=== PATIENT | female | born 1955 | race Caucasian/White ===

== ENCOUNTER 2018-08-29 16:21 | Inpatient (IN) | payer OTHER ==
[~2018-08-29] VITALS: Ht 172.7 cm; Wt 63.5 kg
--- NOTE | 2018-08-29 16:33 | ER Report ---
History and Physical Time Seen By MD: 16:33 Hx. of Stated Complaint: pt had a low speed fall skiing. felt rt hip pop out. went to urgent care, they sent pt to er HPI/ROS CHIEF COMPLAINT: r hip pain HISTORY OF PRESENT ILLNESS: PT was skiing and went to avoid an accident that occurred in front of her and twisted her r hip. Pt went down on her hip. Unable to stand or put pressure back on her leg. pilot [employer] brought her down the hill. PT went to urgent care but told to come to ED. pt took three motrin and eos not want any pain medication currently. No knee pain. no numbnesss. Pain is right hip and medially. REVIEW OF SYSTEMS: Constitutional: No fever, no chills. Eyes: No discharge. ENT: No sore throat. Cardiovascular: No chest pain, no palpitations. Respiratory: No cough, no shortness of breath. Gastrointestinal: No abdominal pain, no vomiting. Genitourinary: No hematuria. Musculoskeletal: No back pain. + r hip pain Skin: No rashes. Neurological: No headache. Allergies: Coded Allergies: No Known Drug Allergies (Unverified , 08/29/18) Home Meds No Active Prescriptions or Reported Meds Past Medical/Surgical History Pmhx: denied Pshx: hyster, tania Reviewed Nurses Notes: Yes Hx Smoking: No Hx Alcohol Use: No Constitutional Vital Sign - Last 24 Hours 08/29/18 16:27 Temp 95.0 Pulse 83 Resp 20 Pulse Ox 97 O2 Delivery Room Air Physical Exam General Appearance: The patient is alert, has no immediate need for airway protection and no signs of toxicity. Eyes: Pupils equal and round no pallor or injection, EOMI ENT: no pharyngeal erythema or exudates, Mucous membranes are moist Respiratory: There are no retractions, lungs are clear to auscultation. Cardiovascular: Regular rate and rhythm. pulses are equal and symmetrical Gastrointestinal: Abdomen is soft and non tender, no masses, bowel sounds normal, no guarding, no rigidity or rebound Neurological: Cranial nerves II-XII grossly intact, no sensory or motor loss Skin: Warm and dry, no rashes. Musculoskeletal: Neck is supple non tender, no vertebral tenderness Upper Extremities are nontender, nonswollen and have full range of motion.Lower extremities: Pt us unable to elevate r lower extremity secondary to pain. NO laxitiy with chhaya, valgus or varus b/l knees; no effusion to knees. PT has point tenderness to r anterior hip and medial ligament line on right DIFFERENTIAL DIAGNOSIS: After history and physical exam differential diagnosis was considered for subluxation of r hip, hip dislocation, hip fracture Medical Decision Making Data Points Result Diagram: 08/29/18 1704 08/29/18 1704 Laboratory Hematology Test 08/29/18 17:04 Red Blood Count 4.82 M/uL (4.17-5.56) Mean Corpuscular Volume 84.6 fL (80.0-96.0) Mean Corpuscular Hemoglobin 28.8 pg (26.0-33.0) Mean Corpuscular Hemoglobin Concent 34.0 g/dL (32.0-36.0) Red Cell Distribution Width 13.2 % (11.5-14.5) Mean Platelet Volume 8.7 fL (7.2-11.1) Neutrophils (%) (Auto) 67.5 % (39.4-72.5) Lymphocytes (%) (Auto) 24.3 % (17.6-49.6) Monocytes (%) (Auto) 4.5 % (4.1-12.4) Eosinophils (%) (Auto) 3.2 % (0.4-6.7) Basophils (%) (Auto) 0.5 % (0.3-1.4) Nucleated RBC Relative Count (auto) 0.0 /100WBC Neutrophils # (Auto) 5.7 K/uL (2.0-7.4) Lymphocytes # (Auto) 2.0 K/uL (1.3-3.6) Monocytes # (Auto) 0.4 K/uL (0.3-1.0) Eosinophils # (Auto) 0.3 K/uL (0.0-0.5) Basophils # (Auto) 0.0 K/uL (0.0-0.1) Nucleated RBC Absolute Count (auto) 0.00 K/uL Prothrombin Time 13.2 seconds (12.0-14.4) Prothromb Time International Ratio 1.00 Activated Partial Thromboplast Time 29 seconds (23-35) Sodium Level 134 mmol/L (137-145) Potassium Level 3.5 mmol/L (3.5-5.0) Chloride Level 105 mmol/L (98-107) Carbon Dioxide Level 23 mmol/L (22-31) Blood Urea Nitrogen 13 mg/dl (7-18) Creatinine 0.80 mg/dl (0.52-1.04) Glomerular Filtration Rate Calc > 60.0 Random Glucose 100 mg/dl (75-110) Calcium Level 9.6 mg/dl (8.4-10.2) Total Bilirubin 2.2 mg/dl (0.2-1.3) Aspartate Amino Transf (AST/SGOT) 36 U/L (0-35) Alanine Aminotransferase (ALT/SGPT) 37 U/L (0-56) Alkaline Phosphatase 81 U/L (0-126) Total Protein 7.1 g/dl (6.3-8.2) Albumin 4.5 g/dl (3.5-5.0) Chemistry Test 08/29/18 17:04 White Blood Count 8.4 k/uL (4.5-11.0) Red Blood Count 4.82 M/uL (4.17-5.56) Hemoglobin 13.9 g/dL (12.0-16.0) Hematocrit 40.8 % (34.0-47.0) Mean Corpuscular Volume 84.6 fL (80.0-96.0) Mean Corpuscular Hemoglobin 28.8 pg (26.0-33.0) Mean Corpuscular Hemoglobin Concent 34.0 g/dL (32.0-36.0) Red Cell Distribution Width 13.2 % (11.5-14.5) Platelet Count 232 K/uL (150-450) Mean Platelet Volume 8.7 fL (7.2-11.1) Neutrophils (%) (Auto) 67.5 % (39.4-72.5) Lymphocytes (%) (Auto) 24.3 % (17.6-49.6) Monocytes (%) (Auto) 4.5 % (4.1-12.4) Eosinophils (%) (Auto) 3.2 % (0.4-6.7) Basophils (%) (Auto) 0.5 % (0.3-1.4) Nucleated RBC Relative Count (auto) 0.0 /100WBC Neutrophils # (Auto) 5.7 K/uL (2.0-7.4) Lymphocytes # (Auto) 2.0 K/uL (1.3-3.6) Monocytes # (Auto) 0.4 K/uL (0.3-1.0) Eosinophils # (Auto) 0.3 K/uL (0.0-0.5) Basophils # (Auto) 0.0 K/uL (0.0-0.1) Nucleated RBC Absolute Count (auto) 0.00 K/uL Prothrombin Time 13.2 seconds (12.0-14.4) Prothromb Time International Ratio 1.00 Activated Partial Thromboplast Time 29 seconds (23-35) Glomerular Filtration Rate Calc > 60.0 Calcium Level 9.6 mg/dl (8.4-10.2) Total Bilirubin 2.2 mg/dl (0.2-1.3) Aspartate Amino Transf (AST/SGOT) 36 U/L (0-35) Alanine Aminotransferase (ALT/SGPT) 37 U/L (0-56) Alkaline Phosphatase 81 U/L (0-126) Total Protein 7.1 g/dl (6.3-8.2) Albumin 4.5 g/dl (3.5-5.0) Coagulation Test 08/29/18 17:04 Prothrombin Time 13.2 seconds Prothromb Time International Ratio 1.00 Activated Partial Thromboplast Time 29 seconds EKG/Imaging EKG Interpretation nsr @ 80 wiht sinus arrhythmia otherwise normal ekg Imaging subtly displaced subvapital femoral neck fracture. ED Course/Re-evaluation Clinical Indication for ER IV: IV Access ED Course PT xray shows femoral neck fracture. will order labs. 08/29/2018 5:29:[address] Mcintosh, orthopedics, reviewed the case. States that he does not perform hip surgery but will call his partner and call me back. 08/29/2018 5:59:[address] Mcintosh, he just got in touch with Dr. Pascal who will due surgery tomorrow. he is not sure if basil wants to be priomary or have hospitalist follow. will call me back. Just spoke with Dr. Mcintosh who will have dr. Pascal accept as primary and consult Hospitalist. Still aware. Decision to Disposition Date: Aug 29, 2018 Decision to Disposition Time: 18:00 Depart Departure Latest Vital Signs Vital Signs Date Time Temp Pulse Resp B/P (MAP) Pulse Ox O2 Delivery O2 Flow Rate FiO2 08/29/18 16:27 95.0 83 20 97 Room Air Impression: Primary Impression: Hip fracture, right Condition: Condition Unchanged Disposition: Admitted from ER New Scripts No Active Prescriptions or Reported Meds Problem Qualifiers Primary Impression: Hip fracture, right Encounter type: initial encounter Fracture type: closed Qualified Codes: S72.001A - Fracture of unspecified part of neck of right femur, initial encounter for closed fracture ULICES HERNANDEZ DO Aug 29, 2018 16:33
[2018-08-29] MEDS ORDERED: fentaNYL CITR 100 MCG/2 ML AMP IVP ONE ×2 (16:50→18:00)
--- NOTE | 2018-08-29 17:01 | RADIOLOGY IMAGING REPORT ---
FACILITY: [facility] [place] PATIENT NAME: Sherrill Johnson : 1955 MR: [id number] V: [id number] EXAM DATE: ORDERING PHYSICIAN: ULICES HERNANDEZ TECHNOLOGIST: Location: [facility] [place] Patient: Sherrill Johnson : 1955 Visit/Account:[id number] Date of Sevice: 08/29/2018 HIP RIGHT Indication: Fall skiing Comparison: None available Findings: There is a subtly displaced subcapital left femoral neck fracture. Mild overriding. The femoral nec k and shaft is very subtly medially displaced. IMPRESSION: 1. Subtly displaced subcapital right femoral neck fracture. Report Dictated By: Oliver Roberto MD at 08/29/2018 4:55 PM Report E-Signed By: Oliver Roberto MD at 08/29/2018 4:56 PM WSN:[id number]
--- NOTE | 2018-08-29 17:01 | EKG ---
FACILITY: [facility] PATIENT NAME: SOFYA GATES : [id number] MR: [id number] V: [id number] EXAM DATE: ORDERING PHYSICIAN: ULICES HERNANDEZ TECHNOLOGIST: Test Reason : Pre-op Blood Pressure : / mmHG Vent. Rate : 079 BPM Atrial Rate : 079 BPM P-R Int : 144 ms QRS Dur : 098 ms QT Int : 410 ms P-R-T Axes : 067 015 040 degrees QTc Int : 470 ms Normal sinus rhythm with sinus arrhythmia Normal ECG No previous ECGs available Confirmed by Stevie Smith ([id number]) on 08/30/2018 12:08:10 AM Referred By: Confirmed By:Stevie Johnson
[2018-08-29 17:18] LABS: PLATELET COUNT, AUTOMATED 232 K/uL (150-450)
[2018-08-29] MEDS ORDERED: ONDANSETRON 4 MG/2 ML VIAL IVP ONE (18:00)
--- NOTE | 2018-08-29 19:49 | RADIOLOGY IMAGING REPORT ---
FACILITY: [facility] - [place] PATIENT NAME: Sherrill Johnson : 1955 MR: [id number] V: [id number] EXAM DATE: ORDERING PHYSICIAN: ULICES HERNANDEZ TECHNOLOGIST: Location: [facility] Patient: Sherrill Johnson : 1955 Visit/Account:[id number] Date of Sevice: 08/29/2018 CHEST SINGLE AP Indication: Pre-op evaluation.. Comparison: None available Findings: Cardiomediastinal silhouette and pulmonary vessels within normal limits. There is no focal infiltrate or lobar consolidation. No pneumothorax or pleural effusion. No nodule. Chronic interstitial changes. Upper abdomen is unremarkable. Surgical clips in the righ t upper quadrant. No acute bony abnormality. IMPRESSION: 1. No acute cardiopulmonary process. Report Dictated By: Shad Morocho at 08/29/2018 7:45 PM Report E-Signed By: Shad Morocho at 08/29/2018 7:45 PM WSN:[id number]
[2018-08-29 19:50] VITALS: BP 138/69
[2018-08-29] MEDS: DOCUSATE SODIUM 100 MG CAP PO SCH (21:00)
--- NOTE | 2018-08-29 22:36 | HISTORY AND PHYSICAL ---
DATE OF ADMISSION: August 29, 2018 ADMISSION DIAGNOSIS Right femoral neck fracture. HISTORY Ms. Johnson is a 62-year-old female who, unfortunately, injured her right hip while skiing on 08/29/18. She was skiing, and there was a pile up in front of her. She went to stop and fell down on her hip. She was obviously unable to ambulate and had pain. She was brought to the Emergency Room, evaluated by the emergency room physicians, found to have an impacted femoral neck fracture, and Orthopedics was consulted. She denies any other complaints. REVIEW OF SYSTEMS Positive only for right hip pain. PHYSICAL EXAMINATION GENERAL: She is in no acute distress. HEENT: Within normal limits. CHEST: Clear to auscultation. HEART: Regular rate and rhythm. ABDOMEN: Soft, nontender, nondistended. MUSCULOSKELETAL: Bilateral upper extremities demonstrate full range of motion, nontender to palpation. Spine nontender to palpation. Pelvis demonstrates right hip pain. She has pain with any log roll or range of motion of the hip. Knee demonstrates no effusion. Plantar flexion, dorsiflexion, FHL, EHL are intact. Sensation at site of perineural nerves is intact. The left hip and leg demonstrate full range of motion, nontender to palpation. LABORATORY TESTS Her white count is 8.4, hematocrit 40.8, platelets 232. Sodium 134, potassium 3.4, BUN 13, creatinine 0.8, glucose 100. PAST MEDICAL HISTORY Denies. PAST SURGICAL HISTORY 1. Left shoulder surgery. 2. Cholecystectomy. 3. Hysterectomy. ALLERGIES No known drug allergies. MEDICATIONS None. SOCIAL HISTORY Denies tobacco. Admits to alcohol use. Currently is retired and lives in [place]. X-RAYS Two views of the hip and pelvis demonstrate a valgus impacted femoral neck fracture. There were minimal signs of femoral and acetabular degenerative joint disease. ASSESSMENT A 62-year-old female with valgus impacted right femoral neck fracture. PLAN At this point, I have consulted Dr. Driscoll as I no longer perform this surgery, and he is aware of Ms. Johnson. We will [facility] with consultation from the hospitalist to evaluate her for optimization. Will keep her n.p.o. after midnight and plan on percutaneous screw fixation of the right impacted femoral neck fracture with Dr. Driscoll tomorrow. [facility]
--- NOTE | 2018-08-29 23:06 | Hospitalist Consultation ---
History of Present Illness Requesting Physician Dr Mcintosh Reason for Consult medical management Chief Complaint R hip Fx History of Present Illness 62F presented with R hip pain. PMHx significant for mild constipation. While skiing she had to stop to avoid skiers trying to rescue another who had left the edge of the run. She heard a pop and fell. She was unable to bear weight and had pain. Brought to [facility] ER where she was found to have R hip Fx. Plan for OR tomorrow to repair. History Other Past Medical Hx as noted in HPI. Home Meds No Active Prescriptions or Reported Meds Allergies: Coded Allergies: No Known Drug Allergies (Unverified , 08/29/18) Hx Smoking: No Hx Alcohol Use: No Review of Systems All Systems Reviewed/Normal: Yes, Except as Noted Musculoskeletal: Pain Exam Vital Signs Vital Signs Date Time Temp Pulse Resp B/P (MAP) Pulse Ox O2 Delivery O2 Flow Rate FiO2 08/29/18 19:43 2.0 08/29/18 19:31 79 96 08/29/18 19:00 142/79 (100) 08/29/18 16:27 95.0 20 Room Air General Appearance: Alert, Awake, No Acute Distress, Afebrile Neuro: No Gross deficits ENT: Normal Cardiovascular: Normal Rhythm & Peripheral Pulses Respiratory: No Respiratory Distress GI: Abd Soft and Non-Tender Musculoskeletal: Other (R hip pain) Extremities: Soft and Non Tender, Warm, Pulses, Perfused Medical Decision Making Data Points Result Diagram: 08/29/18 1704 08/29/18 1704 EKG / Imaging EKG Interpretation NSR Assessment and Plan Problems: (1) Hip fracture, right Status: Acute Assessment & Plan: Plan for surgical repair tomorrow. Patient has excellent functional status, no significant PMHx and is minimal operative risk. Colace was started to help maintain regularity given her mild constipation and likely cameron cotic pain medications. Venous Thromboembolism Antithrombotics Is Pt On Any Antithrombotics?: No Prophylaxis Tx Contraindicated Pharmacological Contraindicati: Surgical Contraindication (surgery tomorrow) Exam Sepsis Risk: No Definite Risk Problem Qualifiers (1) Hip fracture, right: Encounter type: initial encounter Fracture type: closed Qualified Codes: S72.001A - Fracture of unspecified part of neck of right femur, initial encounter for closed fracture CAL GUPTA DO Aug 29, 2018 23:06
[2018-08-29 23:24] VITALS: BP 130/77
[2018-08-30] VITALS (15 sets, daily range): BP systolic 98–145; BP diastolic 35–81; Ht 172.7 cm; Wt 63.5 kg
[2018-08-30] MEDS ORDERED: ceFAZolin(*) 1 GM VIAL 1 GM in NS(*) 0.9% 100 ML ADDVANT BAG 100 ML IV SCH (03:15)
[2018-08-30] MEDS: NORMOSOL R SOLN(*) 1000 ML BAG 1,000 ML IV PRN ×2 (03:17→14:30)
[2018-08-30] MEDS: ONDANSETRON 4 MG/2 ML VIAL IVP PRN ×2 (03:17→11:40)
[2018-08-30] MEDS ORDERED: ceFAZolin(*) 1 GM VIAL 1 GM in NS(*) 0.9% 100 ML ADDVANT BAG 100 ML IV ONE ×3 (06:00→15:00)
[2018-08-30] MEDS: MORPHINE 2 MG/ML SYR IVP PRN ×2 (07:56→11:40)
[2018-08-30] MEDS: DOCUSATE SODIUM 100 MG CAP PO SCH (09:00)
--- NOTE | 2018-08-30 11:47 | Hospitalist Progress Note ---
Subjective Progress Notes Subjective She plans to go to surgery this afternoon. She has complaints of pain to the fracture site. Otherwise, she has no complaints. Patient Complains of: Cardiovascular: No: Chest Pain Respiratory: No: Shortness of Breath Physical Exam Vital Signs Date Time Temp Pulse Resp B/P (MAP) Pulse Ox O2 Delivery O2 Flow Rate FiO2 08/30/18 07:58 97 08/30/18 07:46 Room Air 08/30/18 07:36 97.9 61 18 123/73 (90) 1.0 Intake and Output 08/30/18 06:59 Intake Total 100 ml Output Total 2100 ml Balance -2000 ml Intake Oral 100 ml Output Urine Total 2100 ml # Voids 2 General Appearance: Alert, Awake, No Acute Distress, Afebrile Neuro: No Gross deficits Cardiovascular: Regular Rate and Rhythm Respiratory: No Respiratory Distress, Clear to Auscultation GI: Soft and Non-Tender Psych: Alert & Oriented X3, Appropriate Mood & Affect Result Diagram: 08/29/18 1704 08/29/18 170 Assessment and Plan Problems: (1) Hip fracture, right Status: Acute Assessment & Plan: Plan for surgical repair today. Patient has excellent functional status, no significant PMHx and is minimal operative risk. Colace was started to help maintain regularity given her mild constipation and likely narcotic pain medications. Exam Sepsis Risk: No Definite Risk Problem Qualifiers (1) Hip fracture, right: Encounter type: initial encounter Fracture type: closed Qualified Codes: S72.001A - Fracture of unspecified part of neck of right femur, initial encounter for closed fracture KINSEY CARRENO Aug 30, 2018 11:46
[2018-08-30] MEDS ORDERED: APREPITANT 40 MG CAP PO ONE (13:45)
[2018-08-30] MEDS ORDERED: FAMOTIDINE(*) 20MG/50ML PREMIX 50 ML IVPB ONE (14:00)
[2018-08-30] MEDS ORDERED: DEXAMETHASONE SOD 4 MG/ML VIAL ONE (15:42)
[2018-08-30] MEDS ORDERED: METOCLOPRAMIDE 10 MG/2 ML SDV ONE (15:42)
[2018-08-30] MEDS ORDERED: LIDOCAINE MPF 1% 5 ML VIAL ONE (15:42)
[2018-08-30] MEDS ORDERED: PROPOFOL EMUL(*) 10MG/ML 20 ML 20 ML ONE (15:42)
[2018-08-30] MEDS ORDERED: ROPIVACAINE 0.2% 20 ML VIAL ONE (15:44)
[2018-08-30] MEDS ORDERED: ROPIVACAINE 0.5% 20 ML VIAL ONE (15:44)
[2018-08-30] MEDS ORDERED: fentaNYL CITR 100 MCG/2 ML AMP ONE ×2 (15:50→17:40)
[2018-08-30] MEDS ORDERED: MIDAZOLAM 2 MG/2 ML VIAL ONE (15:56)
[2018-08-30] MEDS ORDERED: ONDANSETRON 4 MG/2 ML VIAL ONE (16:38)
[2018-08-30] MEDS ORDERED: ePHEDrine 25 MG/5 ML DISP.SYR IVP ONE (16:59)
[2018-08-30] MEDS ORDERED: PROMETHAZINE 25 MG/ML 1 ML AMP IVP PRN (17:45)
[2018-08-30] MEDS ORDERED: FLUSH 10 ML SYR IVP PRN (17:45)
[2018-08-30] MEDS ORDERED: LR 1000 ML BAG 1000 ML IV PRN (17:45)
[2018-08-30] MEDS ORDERED: MAGNESIUM HYDROXIDE* 30ML UDCP PO PRN (17:45)
[2018-08-30] MEDS ORDERED: diphenhydrAMINE 50 MG/ML VIAL IVP PRN (17:45)
[2018-08-30] MEDS ORDERED: diphenhydrAMINE 25 MG CAP PO PRN (17:45)
[2018-08-30] MEDS ORDERED: ONDANSETRON 4 MG/2 ML VIAL IVP PRN (17:45)
[2018-08-30] MEDS ORDERED: MAGNESIUM CITRATE 300 ML BTL PO PRN (17:45)
[2018-08-30] MEDS ORDERED: HYDROmorphone HCL 2 MG/ML SDV IVP PRN (17:45)
[2018-08-30] MEDS ORDERED: BISACODYL 10 MG SUPP PR PRN (17:45)
[2018-08-30] MEDS ORDERED: ZOLPIDEM TARTRATE 5 MG TAB PO PRN (17:45)
[2018-08-30] MEDS ORDERED: MEPERIDINE HCL 50 MG/ML SDV 50 MG/ML VIAL ONE (17:48)
--- NOTE | 2018-08-30 18:26 | RADIOLOGY IMAGING REPORT ---
FACILITY: [facility] [place] PATIENT NAME: Sherrill Johnson : 1955 MR: [id number] V: [id number] EXAM DATE: ORDERING PHYSICIAN: RANJAN ARCE TECHNOLOGIST: Location: [facility] Patient: Sherrill Johnson : 1955 Visit/Account:[id number] Date of Sevice: 08/30/2018 EXAMINATION: Intraoperative fluoroscopic images of the right hip. HISTORY: Right hip pinning COMPARISON: Right hip films 08/29/2018. FINDINGS: Fluoroscopic images of the right hip were obtained in the OR during orthopedic surgery. Images demonstrate placement of 3 cannulated screws along the right femoral neck. Improved anatomic a lignment along the femoral neck fracture. Dose: DAP was 2.1098 Gy*cm2. IMPRESSION: Fluoroscopy was utilized during pinning of a right femoral neck fracture. Please see the separate ope rative report for further description of findings. Report Dictated By: Sunny Lynch MD at 08/30/2018 6:20 PM Report E-Signed By: Sunny Lynch MD at 08/30/2018 6:22 PM WSN:[id number]
--- NOTE | 2018-08-30 20:36 | OPERATIVE REPORT 1 ---
EVENT DATE: August 30, 2018 SURGEON: Faisal Driscoll MD ANESTHESIOLOGIST: Germán Burns MD ANESTHESIA: General plus block. COURT WORKER: Liu Rubi PA-C PREOPERATIVE DIAGNOSIS Right base of cervical neck fracture, mildly displaced. POSTOPERATIVE DIAGNOSIS Right base of cervical neck fracture, mildly displaced. PROCEDURE PERFORMED Percutaneous pinning of right femoral neck fracture after a closed reduction. FINDINGS The patient had an excellent reduction of the femoral neck and head, and three screws were then placed inside of the femoral head. ESTIMATED BLOOD LOSS About 10 mL. DRAINS None. COMPLICATIONS None. TOURNIQUET TIME Not applicable. IMPLANTS USED Three 7.3 cannulated screws, 90, 95, and 100 mm screws with short threads. SPECIMENS None. INDICATIONS AND HISTORY This patient is a 62-year-old female who injured herself while skiing yesterday on 08/29/2018 and felt a kind of pinch into her hip. She was unable to bear weight, and so she was taken to the Emergency Department where she was found to have a valgus impacted femoral neck fracture. The patient was then admitted to our service, and then we got her set up for surgery today, 08/30/2018. The risks and benefits were discussed with the patient, and informed consent was obtained. We talked about a fixation versus a argelia or total hip arthroplasty. She wanted to go ahead with fixation to try and preserve bone. She understands she may need a total arthroplasty or hemiarthroplasty in the near future if this fails, but that we would give it every chance to try and heal with her [place] bone. DESCRIPTION OF PROCEDURE As the patient was brought into the operating room, she and the procedure were both verified. She was placed supine on the operating table and induced and intubated by Anesthesia after being given a block. The right lower extremity was then prepped and draped in the usual fashion, and a timeout was observed verifying the correct patient and procedure. After utilizing the fracture table to reduce the fracture with a slight adduction movement, I was then able to reduce the fracture to an anatomical positive. We then made a small incision on the lateral aspect and then put a pin along the lateral cortex and guided it up and towards the femoral head on the inferior portion. The inferior pin was then inserted first by drilling through the lateral cortex and up through the fracture site and into the inferior portion of the head. This was verified on C-arm images on both AP and lateral to be in excellent position, and so therefore we then measured this and then put in a partially threaded cannulated screw out of the 7.3 set without any difficulty whatsoever. This was then followed by secondary pin fixation going slightly anterior and superior to the original screw. Once we got this in excellent position and had it facing the anterior aspect, we were then able to put in a 90 mm screw into this area without any issues. This then helped reduce the fracture, and then we put in a third pin a little bit more superior and more posterior in order to get good pin spread on the distal aspect of the femoral head. We made sure not to penetrate with any of the screws or the pins prior to fixation, and I made sure there was no screw penetration in any way, shape, or form. We tried to get them as close to the cortices as possible in order to create a stable fracture and allow for sliding. We then irrigated with copious amounts of saline, took final x-rays, and made sure there were no signs of problems. We then were able to close the wound after beginning with a Vicryl for the deep tissue and then a 3-0 Vicryl in the subcutaneous tissue and then a 4-0 Monocryl in the skin with the ends tied on the inside. The wound was anesthetized and then dressed with Steri-Strips, gauze 4 x 4's, and a soft dressing. PLAN The patient will be admitted overnight one more night and then be weightbearing as tolerated. She will auto protect it. We talked to her about taking some of the weight off it. TANK
[2018-08-30] MEDS: ASPIRIN 325 MG TAB PO SCH (21:02)
[2018-08-30] MEDS: ceFAZolin(*) 1 GM VIAL 1 GM in NS(*) 0.9% 100 ML ADDVANT BAG 100 ML IVPB SCH (23:27)
[2018-08-31] VITALS (7 sets, daily range): BP systolic 96–139; BP diastolic 51–86
[2018-08-31] MEDS ORDERED: HYDR-653 PO (07:47)
[2018-08-31] MEDS: ceFAZolin(*) 1 GM VIAL 1 GM in NS(*) 0.9% 100 ML ADDVANT BAG 100 ML IVPB SCH ×2 (08:26→16:10)
[2018-08-31] MEDS ORDERED: NS(*) 0.9% 250 ML BAG 250 ML ONE (08:33)
--- NOTE | 2018-08-31 09:50 | NUR ---
Physical Therapy Impression PT eval completed. Pt will need to be able to accomplish up/down 3 steps without rail to enter her home. Pt must travel for 8 hours by car (more likely 10+ with bathroom stops and DVT prevention mobility) in order to return home and thus will need to be very functional with car transfers in/out of a sedan. Pt currently requires Min assist to transfer supine to/from sit and CGA for sit to/from stand with use of FWW. PT will address stair and more functional mobility this afternoon. Physical Therapy Goals 1. Pt to be modified indep with bed mobility and supine<>sit trnsfr 2. Pt to be modified indep with sit to/from stand transfers 3. Pt to tolerate ambulation x 150' with least restrictive device and SBA 4. Pt to tolerate up/down 4 steps with crutch and CGA by spouse to simulate entry to home. Patient's Goals
[2018-08-31] MEDS ORDERED: ASPI-757 PO (10:47)
--- NOTE | 2018-08-31 10:49 | Hospitalist Progress Note ---
Subjective Progress Notes Subjective She was admitted with hip fracture. She is doing well post-operatively. She has no complaints this morning. Patient Complains of: Cardiovascular: No: Chest Pain Respiratory: No: Shortness of Breath Physical Exam Vital Signs Date Time Temp Pulse Resp B/P (MAP) Pulse Ox O2 Delivery O2 Flow Rate FiO2 08/31/18 08:46 96 08/31/18 08:46 Room Air 08/31/18 08:22 98.3 66 14 120/74 (89) 08/31/18 04:08 0.5 Intake and Output 08/31/18 06:59 Intake Total 1911 ml Output Total 3025 ml Balance -1114 ml Intake Oral 700 ml IV Total 1211 ml Output Urine Total 3025 ml General Appearance: Alert, Awake, No Acute Distress, Afebrile Neuro: No Gross deficits Cardiovascular: Regular Rate and Rhythm Respiratory: No Respiratory Distress, Clear to Auscultation GI: Soft and Non-Tender Psych: Alert & Oriented X3, Appropriate Mood & Affect Result Diagram: 08/31/18 0514 08/29/18 1704 Assessment and Plan Problems: (1) Hip fracture, right Status: Acute Assessment & Plan: She is s/p hip pinning 08/30. Patient has excellent functional status, no significant PMHx and is minimal operative risk. Colace was started to help maintain regularity given her mild constipation and likely narcotic pain medications. Exam Sepsis Risk: No Definite Risk Problem Qualifiers (1) Hip fracture, right: Encounter type: initial encounter Fracture type: closed Qualified Codes: S72.001A - Fracture of unspecified part of neck of right femur, initial encounter for closed fracture KINSEY CARRENO SMOKE ROOM OPERATOR Aug 31, 2018 10:49
--- NOTE | 2018-08-31 12:43 | NUR ---
Occupational Therapy Impression Pt alert and agreeable to OT tx. Requesting hair washed. Mod (I) bed mobility. Independent toileting. Independent LB dressing. Independent oral care/grooming sinkfront. Increased assist from OT for washing hair at sink seated. Mod (I) ambulation in room with RW. SpO2 WNL on room air throughout. Spouse present and plans to assist with ADLs/IADLs as needed. No further skilled OT needs. Pt safe for discharge when PT goals are met and medically appropriate. Occupational Therapy Goals Patient's Goal
--- NOTE | 2018-08-31 14:00 | NUR ---
Physical Therapy Impression Pt demos progress with mobility, however, is not yet as indep as needed to transport home easily with greatest safety. Pt plans to address constipation this evening with nursing and her will obtain a leg contact lens flashing puncher and FWW for assistance with more indep mobility. Pt has met distance ambulation goal with FWW and tolerated up/down steps with crutch and CGA by with proper safety awareness. Pt is safe to d/c home by car when equipment is obtained to improve indep, and pt is encouraged to get out and ambulate for DVT prevention every [address] home. Physical Therapy Goals 1. Pt to be modified indep with bed mobility and supine<>sit trnsfr 2. Pt to be modified indep with sit to/from stand transfers 3. Pt to tolerate ambulation x 150' with least restrictive device and SBA 4. Pt to tolerate up/down 4 steps with crutch and CGA by spouse to simulate entry to home. Patient's Goals
[2018-08-31] MEDS: APAP/HYDROCODONE 325/5 TAB PO PRN (17:43)
[2018-08-31] MEDS: DOCUSATE SODIUM 100 MG CAP PO SCH (21:24)
[2018-08-31] MEDS: ASPIRIN 325 MG TAB PO SCH (21:24)
[2018-09-01] MEDS: APAP/HYDROCODONE 325/5 TAB PO PRN ×2 (00:34→08:56)
[2018-09-01 03:50] VITALS: BP 117/66
[2018-09-01 07:25] VITALS: BP 132/79
[2018-09-01] MEDS: DOCUSATE SODIUM 100 MG CAP PO SCH (08:56)
--- NOTE | 2018-09-01 09:29 | Hospitalist Progress Note ---
Subjective Progress Notes Subjective She has no complaints this morning. She had no acute events overnight. She would like to go home today. Patient Complains of: Cardiovascular: No: Chest Pain Respiratory: No: Shortness of Breath Physical Exam Vital Signs Date Time Temp Pulse Resp B/P (MAP) Pulse Ox O2 Delivery O2 Flow Rate FiO2 09/01/18 07:25 98.7 66 16 132/79 (96) 92 Room Air 08/31/18 11:56 1.0 Intake and Output 09/01/18 06:59 Intake Total 620 ml Balance 620 ml Intake Oral 620 ml # Voids 3 General Appearance: Alert, Awake, No Acute Distress, Afebrile Neuro: No Gross deficits Cardiovascular: Regular Rate and Rhythm Respiratory: No Respiratory Distress, Clear to Auscultation GI: Soft and Non-Tender Psych: Alert & Oriented X3, Appropriate Mood & Affect Result Diagram: 09/01/18 0541 08/29/18 1704 Assessment and Plan Problems: (1) Hip fracture, right Status: Acute Assessment & Plan: She is s/p hip pinning 08/30. Patient has excellent functional status, no significant PMHx and is minimal operative risk. Colace was started to help maintain regularity given her mild constipation and likely narcotic pain medications. Management by Dr. Driscoll. She will follow his ins tructions post-operatively. Exam Sepsis Risk: No Definite Risk Problem Qualifiers (1) Hip fracture, right: Encounter type: initial encounter Fracture type: closed Qualified Codes: S72.001A - Fracture of unspecified part of neck of right femur, initial encount er for closed fracture KINSEY CARRENO Sep 01, 2018 09:29
--- NOTE | 2018-09-01 09:40 | NUR ---
Physical Therapy Impression Pt has obtained equipment and demos proper use and safety with devices. Pt indicates that she feels able to manage her discomfort appropriately for transport home x 8-[address] and verbalizes understanding of frequent ambulation breaks to minimize risk of DVT. Physical Therapy Goals 1. Pt to be modified indep with bed mobility and supine<>sit trnsfr 2. Pt to be modified indep with sit to/from stand transfers 3. Pt to tolerate ambulation x 150' with least restrictive device and SBA 4. Pt to tolerate up/down 4 steps with crutch and CGA by spouse to simulate entry to home. Patient's Goals
[2018-09-03 06:47] VITALS: BP 72/42
== END 2018-09-01 10:25 | disposition home or self-care (01) | DRG 482 ==
LOC: EDSEX 16:30 → ER 16:30 → MED 19:32
PROVIDERS: ADMIT Orthopaedic Surgery; ATTEND Orthopaedic Surgery
PROC: 0QS634Z Reposition Right Upper Femur with Internal Fixation Device, Percutaneous Approach (ICD-10-PCS; principal; 2018-08-30 16:06)
DX: S72.041A Displaced fracture of base of neck of right femur, initial encounter for closed fracture (principal); K59.03 Drug induced constipation; T40.605A Adverse effect of unspecified narcotics, initial encounter; Z90.49 Acquired absence of other specified parts of digestive tract; Z90.710 Acquired absence of both cervix and uterus; V00.321A Fall from snow-skis, initial encounter; Y93.23 Activity, snow (alpine) (downhill) skiing, snowboarding, sledding, tobogganing and snow tubing; Y92.39 Other specified sports and athletic area as the place of occurrence of the external cause; Y99.8 Other external cause status
CPT/HCPCS: 36415; 71045; 76000; 76942; 82040; 82247; 82310; 82374; 82435; 82565; 82947; 84075; 84132; 84155; 84295; 84450; 84460; 84520; 85014; 85018; 85025; 85610; 85730; 93005; 96374; 96375; 97161; 97165; 99285; C1758; J0690; J1100; J2001; J2175; J2250; J2270; J2405; J2704; J2765; J2795; J3010; J7050; J8501